=== PATIENT | male | born 1985 ===

== ENCOUNTER 2020-11-03 20:53 | Emergency (ER) | payer SELFPAY ==
--- NOTE | 2020-11-03 21:07 | XRR_ITS ---
PROCEDURE INFORMATION: Exam: XR Left Hand Exam date and time: 11/03/2020 9:07 PM Age: 34 years old Clinical indication: Injury or trauma; Other: Smashed in gate; Crushing; Left; Injury details: PT smashed his hand in a gate. Pain on the 5th metacarpal TECHNIQUE: Imaging protocol: XR Left hand. Views: 3 or more views. COMPARISON: No relevant prior studies available. FINDINGS: Bones/joints: Fifth metacarpal bone fracture. Distal neck fracture. Severe dorsal apex angulation deformity. Moderate displacement. Normal joint spaces. Soft tissues: Soft tissue swelling over the dorsum of the hand. XR/XR hand LT min 3V* [id number] IMPRESSION: Acute 5th metacarpal bone fracture.
[2020-11-03 21:16] VITALS: BP 150/89; PULSE 115; TEMP 36.8; O2SAT 97; BMI 30.7
[2020-11-03 21:20] VITALS: BP 154/88; PULSE 101; RESP 16; TEMP 36.8; O2SAT 97
[2020-11-03 21:25] VITALS: PULSE 101
--- NOTE | 2020-11-03 21:28 | ED_ITS ---
HPI - Extremity Problem General: Chief complaint: Extremity Injury, Upper Stated complaint: Injury Left Hand Time Seen by Provider: 11/03/20 21:27 History of Present Illness: HPI Narrative: Patient is a 34-year-old male comes to the ED with left hand injury. Patient says that injury occurred just prior to arrival. He was working out slight over his forearm and his left hand got smashed between some cattle and fence gate. Most of his pain is located towards the palm of his hand just below fourth and fifth digits. He rates his pain currently a 6 out of 10. Any movement with fourth and fifth digits causes pain. Associated symptoms: Deny chest pain, fever(s) or rash Review of Systems Const: Denies: fever(s), chills or fatigue Eyes: Denies: change in vision or eye discomfort ENMT: Denies: throat pain, odynophagia, nasal discharge or nasal congestion Card: Denies: chest pain, palpitations, edema, swelling of feet/ankles, dys pnea on exertion or orthopnea Resp: Denies: dyspnea, productive cough or non-productive cough GI: Denies: abdominal pain, nausea, vomiting, diarrhea, constipation or hematochezia : Denies: flank pain, difficulty urinating, dysuria or hematuria Musc: Reports: extremity pain (left hand pain); Denies: neck pain, back pain or extremity swelling Skin/Breast: Denies: rash or new lesions Neuro: Denies: headache(s), numbness in extremities or weakness in extremities PFS ED PFSH: Medical History Chronic groin pain History of kidney stones History of testicular cancer Hypogonadism Surgical History History of appendectomy History of bilateral orchiectomies Family History Other Adopted Social History Alcohol intake: current Alcohol intake frequency: other Marital status: Physical Exam Const: COMMON NORMALS: no acute distress, patient oriented x3, healthy appearing and alert GENERAL APPEARANCE: cooperative and comfortable HENMT: COMMON NORMALS: normocephalic HEAD & SCALP: normocephalic MOUTH: Normal oral and palatal mucosa present THROAT: posterior oropharynx normal and uvula midline Neck/C-Spine: COMMON NORMALS: supple GENERAL: Yes normal visual inspection Resp: COMMON NORMALS: normal respiratory effort, No retractions, No use of accessory muscles and clear to auscultation bilaterally AUSCULTATION: clear to auscultation bilaterally Cardio: COMMON NORMALS: regular rate, regular rhythm, S1 normal heart sound present, S2 normal heart sound present, No gallops present (Cardio), No clicks present (Cardio), No murmurs present (Cardio) and Peripheral pulses 2+ throughout RATE: regular rate RHYTHM: regular rhythm HEART SOUNDS: S1 normal heart sound present and S2 normal heart sound present PERIPHERAL PULSES: Peripheral pulses 2+ throughout GI: COMMON NORMALS: Normal to inspection, nondistended, normoactive bowel sounds present, Soft to palpation, non-tender and no masses PALPATION: Yes Soft to palpation : COMMON NORMALS: Yes no CVA tenderness BLADDER/KIDNEY EXAM: Yes no CVA tenderness Back/Pelvis: COMMON NORMALS: no CVA tenderness Extremity: GENERAL: Yes normal exam except as noted LEFT UPPER EXTREMITY: Yes hand & digits Left hand and digits: Yes inspection (No visible deformity or ecchymosis noted.), Yes palpation (Tenderness upon palpation of fourth and fifth metatarsal), Yes ROM (Limited flexion of fourth and fifth digit due to pain) and Yes neurovascular exam (Intact) Neuro: COMMON NORMALS: patient oriented x3 and moves all extremities SENSORIUM/ORIENTATION: Yes alert Skin: GENERAL SKIN EXAM: dry skin Course Vital Signs: Vital signs: Vital Signs Temperature 98.3 F 11/03/20 21:20 Pulse Rate 83 11/03/20 22:25 Respiratory Rate 14 11/03/20 22:25 Blood Pressure 126/83 11/03/20 22:25 Pulse Oximetry 98 11/03/20 22:25 MDM - Extremity (Nontraumatic) MDM Narrative: Medical decision making narrative: Patient is a 34-year-old male comes to the ED with hand injury and pain. No visible deformity seen. Neurovascular tact. X-ray of left hand shows 5th metacarpal distal head fracture. Patient was put in a ulnar gutter splint and discharged home with a prescription for hydrocodone for pain. I placed order with patient case manager for patient to be referred to orthopedic doctor. Return to ED precautions given. Patient was told patient case manager will contact him in the next several days set up an appoint with orthopedic doctor. Patient understood and agree with plan. Imaging Data^: Xray Ortho: Attestation: I personally reviewed and interpreted this imaging study as follows: My impression: Left hand x-ray-fifth metacarpal distal head fracture. Discharge Plan Discharge Patient Disposition: Home Clinical Impression: Fracture of fifth metacarpal bone Qualifiers: Encounter type: initial encounter Fracture type: closed Metacarpal location: base Fracture alignment: displaced Laterality: left Qualified Code(s): S62.317A - Displaced fracture of base of fifth metacarpal bone, left hand, initial encounter for closed fracture Condition: Stable Prescriptions: No Action tramadol 50 mg tablet 50 mg PO BID PRN (Reason: pain) Qty: 60 RF: 0 tramadol 50 mg tablet 50 mg PO BID PRN (Reason: Chronic pain) Qty: 60 RF: 0 testosterone cypionate 200 mg/mL oil 200 mg IM .weekly Qty: 10 RF: 5 Discharge Orders: Discharge ED (Routine); Ordered 11/03/20 Ordered By: Kunal Harris Discharge Diet: Regular Discharge Activity: Limit activity as instructed Patient Instructions: Hand Fracture (ED), Boxer Fracture (ED), Opioid Safety Activity Restrictions/Additional Instructions: Follow-up with medical provider as directed. Case management will be contacting you in the next several days to set up an appointment with orthopedic doctor. Keep splint on and dry and limit activity with left hand. Take medications as prescribed. Return to the ER or your medical provider if condition worsens. Please read and understand discharge instructions. Thank you for choosing [facility] for your healthcare needs today. Please realize this is an emergency room and that we are providing you with a medical screening exam and this may not be complete and all inclusive of all the testing and or work up that you may need to determine your ailment or severity of your illness. It is very important that you follow up as instructed or that you return to the Emergency Department should you have concerns or if your condition changes or worsens in any way. Coding Level of Care Code ED Senior Technical Business Analyst for Alek Orellana Exam Comprehensive
[2020-11-03] MEDS: HYDROcodone-acetaminophen 5-325 mg Tablet 1 TAB PO (21:33)
[2020-11-03 22:25] VITALS: BP 126/83; PULSE 83; RESP 14; O2SAT 98
--- NOTE | 2020-11-12 13:58 | DCPLANNER ---
manager credit risk had message to schedule a follow up appointment for patient with ortho. Referral was made to the ortho clinic, patient was seen on 11.09.20. Patient did attend appointment.
== END 2020-11-03 22:29 | disposition home or self-care (01) ==
PROVIDERS: Emergency Provider Physician Assistant
DX: S62.317A Displaced fracture of base of fifth metacarpal bone, left hand, initial encounter for closed fracture (principal); Z85.47 Personal history of malignant neoplasm of testis; W23.0XXA Caught, crushed, jammed, or pinched between moving objects, initial encounter
CPT/HCPCS: 29125; 73130; 99283

== ENCOUNTER → 2020-11-09 14:07 | Outpatient (BNVA) | payer SELFPAY | PROVIDERS: Referring Provider Physician Assistant; Visit Provider Orthopaedic Surgery | DX: S62.317A Displaced fracture of base of fifth metacarpal bone, left hand, initial encounter for closed fracture (principal); X58.XXXA Exposure to other specified factors, initial encounter | CPT/HCPCS: 73130 ==

== ENCOUNTER 2020-11-09 15:00 | Outpatient (CLI) | payer SELFPAY | END 2020-11-09 15:01 | disposition home or self-care (01) | LOC: SPT 15:00 | PROVIDERS: Visit Provider Orthopaedic Surgery | DX: Z46.89 Encounter for fitting and adjustment of other specified devices (principal); S62.317D Displaced fracture of base of fifth metacarpal bone, left hand, subsequent encounter for fracture with routine healing; X58.XXXD Exposure to other specified factors, subsequent encounter | CPT/HCPCS: 97760; L3984 ==

== ENCOUNTER 2023-01-31 01:10 | Emergency (ER) | payer SELFPAY ==
[2023-01-31 01:14] VITALS: BP 131/84; PULSE 121; RESP 18; TEMP 36.3; O2SAT 97; BMI 26.4
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
[2023-01-31 01:37] VITALS: PULSE 89; RESP 16; O2SAT 98
== END 2023-01-31 01:38 | disposition home or self-care (01) ==
PROVIDERS: Emergency Provider Emergency Medicine
DX: S01.81XA Laceration without foreign body of other part of head, initial encounter (principal); Z85.47 Personal history of malignant neoplasm of testis; Y04.2XXA Assault by strike against or bumped into by another person, initial encounter
CPT/HCPCS: 12013; 99282

== ENCOUNTER 2024-06-28 11:47 | Emergency (ER) | payer SELFPAY ==
[2024-06-28 11:54] VITALS: BP 128/80; PULSE 103; RESP 17; TEMP 36.9; O2SAT 91; BMI 27.1
[2024-06-28 12:31] LABS: Basophils # 0.1 10^3/uL (0.0-0.1); Basophils % 0.6 %; Eosinophils % 0.2 %; Hematocrit 45.4 % (37-53); Lymphocytes # 1.7 10^3/uL (0.8-4.8); Lymphocytes % 17.6 %; Mean Corpuscular HGB Conc 34.4 g/dL (30-55); Mean Corpuscular Hemoglobin 30.1 pg (27-33); Mean Corpuscular Volume 87.6 fl (82-101); Monocytes # 0.2 10^3/uL (0.2-0.9); Monocytes % 2.5 %; Neutrophils # 7.56 10^3/uL (1.8-7.7); Neutrophils % 78.8 %; Nucleated Red Blood Cells % 0 %; Platelet Count 273 10^3/cmm (157-399); Red Blood Count 5.18 10^6/uL (3.85-5.65); Red Cell Distribution Width 13.4 % (12.1-15.1)
[2024-06-28 12:48] LABS: Alanine Aminotransferase 73 U/L (0-41); Albumin Level 4.7 g/dL (3.5-5.2); Alkaline Phosphatase 59 U/L (40-130); Anion Gap 30.7 (5-19); Aspartate Amino Transferase 93 U/L (0-40); Blood Urea Nitrogen 21 mg/dL (6-20); Carbon Dioxide 18 mmol/L (22-29); Chloride 97 mmol/L (98-107); Creatinine Clr Calc Pharmacy 144.0577; Globulin 3.1 g/dL (1.3-4.6); Glomerular Filtration Rate 108.8 mL/min (90-130); Glucose 77 mg/dL (65-115); Lipase 29 U/L (13-60); Osmolality Calculated 296 mOsm/kg (285-295); Potassium 3.7 mmol/L (3.5-5.1); Sodium 142 mmol/L (136-145); Total Bilirubin 0.5 mg/dL (0.15-1.2); Total Protein 7.8 g/dL (6.6-8.7)
[2024-06-28 12:49] LABS: Ammonia 22 umol/L (16-60)
[2024-06-28 13:03] LABS: Alcohol Level 346 mg/dL (0-10)
--- NOTE | 2024-06-28 13:12 | W.ED.GENADLT ---
HPI - General Adult General: Chief complaint: General Medical Stated complaint: decreased level of consciousness Time Seen by Provider: 06/28/24 11:50 History of Present Illness: 38-year-old male presents to the emergency room with report of altered mental status. Patient is awake answers questions appears somewhat lethargic he states he has aches and pains everywhere. He relates he drinks regularly and thinks he is having withdrawal he states his last drink was about 12 to 15 hours ago. He denies any specific chest or abdominal pain he has had some vomiting denies any medic easier melena. Associated symptoms: Reports vomiting; Deny chest pain, dyspnea or rash Related Data Home Medications ?Medication ?Instructions ?Recorded ?Confirmed No Known Home Medications 06/28/24 06/28/24 Allergies Allergy/AdvReac Type Severity Reaction Status Date / Time meperidine (From Demerol) Allergy Unknown Unknown Verified 11/09/20 14:07 prochlorperazine (From Allergy Unknown Unknown Verified 11/09/20 14:07 Compazine) Review of Systems Const: Denies: fever(s) or chills Card: Denies: chest pain Resp: Denies: dyspnea GI: Reports: vomiting; Denies: abdominal pain : Denies: dysuria, urinary frequency or urinary urgency Musc: Denies: neck pain or back pain Skin/Breast: Denies: rash PFSH ED PFSH: Medical History History of kidney stones Hypogonadism Chronic groin pain History of testicular cancer Surgical History History of appendectomy History of bilateral orchiectomies Family History Other Adopted Social History Alcohol intake: current Alcohol intake frequency: other Marital status: Physical Exam Const: GENERAL APPEARANCE: cooperative HENMT: COMMON NORMALS: normocephalic, atraumatic and hearing grossly normal bilaterally HEAD & SCALP: normocephalic and atraumatic Resp: COMMON NORMALS: normal respiratory effort, No retractions, No use of accessory muscles and clear to auscultation bilaterally AUSCULTATION: clear to auscultation bilaterally Cardio: COMMON NORMALS: regular rate, regular rhythm and No murmurs present (Cardio) RATE: regular rate RHYTHM: regular rhythm GI: COMMON NORMALS: Soft to palpation and No hepatosplenomegaly present AUSCULTATION: Yes normoactive bowel sounds PALPATION: Yes Soft to palpation, No Tenderness to palpation present (GI), No Guarding due to palpation present (GI) and Yes No hepatosplenomegaly present Extremity: COMMON NORMALS: normal to inspection, capillary refill normal, no clubbing, cyanosis or edema, no calf tenderness and no pedal edema Skin: COMMON NORMALS: no rashes or lesions noted GENERAL SKIN EXAM: no rashes or lesions noted Course Vital Signs: Vital signs: Vital Signs Temperature 98.5 F 06/28/24 11:54 Pulse Rate 103 H 06/28/24 11:54 Respiratory Rate 17 06/28/24 11:54 Blood Pressure 128/80 06/28/24 11:54 Pulse Oximetry 91 06/28/24 11:54 [facility] - General Adult Medical Decision Making Blood alcohol markedly elevated. Has an anion gap to things also related to his drinking. He is up and ambulatory now. Liver functions are elevated discussed with him the findings related to drinking. Also discussed with him the importance of stopping drinking. I do not think he is in withdrawal at this point given his blood alcohol we will discharge patient home. He was up ambulatory his significant other was here in the emergency room with him as well. Lab Data 06/28/24 12:17 06/28/24 12:17 Laboratory Results WBC 9.60 10^3/uL (3.29-11.43) 06/28/24 12:17 RBC 5.18 10^6/uL (3.85-5.65) 06/28/24 12:17 Hgb 15.60 g/dL (11.27-16.99) 06/28/24 12:17 Hct 45.4 % (37-53) 06/28/24 12:17 MCV 87.6 fl (82-101) 06/28/24 12:17 MCH 30.1 pg (27-33) 06/28/24 12:17 MCHC 34.4 g/dL (30-55) 06/28/24 12:17 RDW 13.4 % (12.1-15.1) 06/28/24 12:17 Plt Count 273 10^3/cmm (157-399) 06/28/24 12:17 MPV 10.0 fL (7.4-10.4) 06/28/24 12:17 Neut % (Auto) 78.8 % 06/28/24 12:17 Lymph % (Auto) 17.6 % 06/28/24 12:17 [place] % (Auto) 2.5 % 06/28/24 12:17 Eos % (Auto) 0.2 % 06/28/24 12:17 Baso % (Auto) 0.6 % 06/28/24 12:17 Neut # (Auto) 7.56 10^3/uL (1.8-7.7) 06/28/24 12:17 Lymph # (Auto) 1.7 10^3/uL (0.8-4.8) 06/28/24 12:17 [place] # (Auto) 0.2 10^3/uL (0.2-0.9) 06/28/24 12:17 Eos # (Auto) 0.0 10^3/uL (0.0-0.8) 06/28/24 12:17 Baso # (Auto) 0.1 10^3/uL (0.0-0.1) 06/28/24 12:17 Nucleated RBC % (auto) 0 % 06/28/24 12:17 Nucleated RBCs # 0.0 /100WBC 06/28/24 12:17 Sodium 142 mmol/L (136-145) 06/28/24 12:17 Potassium 3.7 mmol/L (3.5-5.1) 06/28/24 12:17 Chloride 97 mmol/L (98-107) L 06/28/24 12:17 Carbon Dioxide 18 mmol/L (22-29) L 06/28/24 12:17 Anion Gap 30.7 (5-19) H 06/28/24 12:17 BUN 21 mg/dL (6-20) H 06/28/24 12:17 Creatinine 0.8 mg/dL (0.7-1.2) 06/28/24 12:17 GFR Calculation 108.8 mL/min (90-130) 06/28/24 12:17 Glucose 77 mg/dL (65-115) 06/28/24 12:17 Calculated Osmolality 296 mOsm/kg (285-295) H 06/28/24 12:17 Calcium 9.0 mg/dL (8.5-10.5) 06/28/24 12:17 Total Bilirubin 0.5 mg/dL (0.15-1.2) 06/28/24 12:17 AST 93 U/L (0-40) H 06/28/24 12:17 ALT 73 U/L (0-41) H 06/28/24 12:17 Alkaline Phosphatase 59 U/L (40-130) 06/28/24 12:17 Ammonia 22 umol/L (16-60) 06/28/24 12:17 Total Protein 7.8 g/dL (6.6-8.7) 06/28/24 12:17 Albumin 4.7 g/dL (3.5-5.2) 06/28/24 12:17 Globulin 3.1 g/dL (1.3-4.6) 06/28/24 12:17 Lipase 29 U/L (13-60) 06/28/24 12:17 Urine Color Yellow (Yellow) 06/28/24 13:44 Urine Appearance Clear (CLEAR) 06/28/24 13:44 Urine pH 5.0 (5-7) 06/28/24 13:44 Ur Specific [place] 1.016 (1.005-1.030) 06/28/24 13:44 Urine Protein 2+ (Negative) A 06/28/24 13:44 Urine Glucose (UA) Negative (Normal) 06/28/24 13:44 Urine Ketones 1+ (Negative) H 06/28/24 13:44 Urine Blood Negative (Negative) 06/28/24 13:44 Urine Nitrate Negative (Negative) 06/28/24 13:44 Urine Bilirubin Negative (Negative) 06/28/24 13:44 Urine Urobilinogen 0.2 mg/dL (Negative) 06/28/24 13:44 Ur Leukocyte Esterase Negative (Negative) 06/28/24 13:44 Urine RBC 0-2 /hpf (0-2) 06/28/24 13:44 Urine WBC 0-5 /hpf (0-5) 06/28/24 13:44 Ur Squamous Epith Cells 0-5 /hpf (0-5) 06/28/24 13:44 Amorphous Sediment Not Reportable 06/28/24 13:44 Urine Bacteria None seen /hpf (NONE) 06/28/24 13:44 Hyaline Casts 14.87 /lpf 06/28/24 13:44 Fine Granular Casts 0-4 /lpf H 06/28/24 13:44 Urine Opiates Screen Negative ng/mL (Negative) 06/28/24 13:44 Ur Barbiturates Screen Negative ng/mL (Negative) 06/28/24 13:44 Ur Phencyclidine Scrn Negative ng/mL (Negative) 06/28/24 13:44 Ur Amphetamines Screen Negative ng/mL (Negative) 06/28/24 13:44 U Benzodiazepines Scrn Positive ng/mL (Negative) H 06/28/24 13:44 Urine Cocaine Screen Negative ng/mL (Negative) 06/28/24 13:44 U Marijuana (THC) Screen Negative ng/mL (Negative) 06/28/24 13:44 Ethyl Alcohol 346 mg/dL (0-10) H* 06/28/24 12:17 No radiology studies performed this visit Discharge Plan Discharge Patient Disposition: Home Clinical Impression: Alcohol intoxication Condition: Stable Prescriptions: No Action No Known Home Medications Discharge Orders: Discharge ED (Routine); Ordered 06/28/24 Ordered By: Sd Garibya Discharge Diet: Usual diet Discharge Activity: Increase activity as tolerated Patient Instructions: Alcohol Intoxication (ED), Abuse of Alcohol (ED), Alcohol Dependence (ED), Opioid Safety, Pain Management Activity Restrictions/Additional Instructions: Thank you for choosing [facility] for your healthcare needs today. It is very important that you follow up as instructed or that you return to the Emergency Department should you have concerns or if your condition changes or worsens in any way. Abstain from alcohol Print Language: Singaporean Coding Level of Care Code ED Talent Development Consultant for Alek Orellana
[2024-06-28 14:03] LABS: Bilirubin Urine Negative (Negative); Blood Urine Negative (Negative); Glucose Urine UA Negative (Normal); Ketones Urine 1+ (Negative); Leukocyte Esterase Urine Negative (Negative); Nitrate Urine Negative (Negative); Protein Urine 2+ (Negative); Specific Gravity, Urine 1.016 (1.005-1.030); Urine Appearance Clear (CLEAR); Urine Color Yellow (Yellow); Urobilinogen Urine 0.2 mg/dL (Negative)
[2024-06-28 14:05] LABS: Add Urine Microscopic? YES; Bacteria Urine None Seen /hpf; Hyaline Casts Urine 14.87 /lpf; RBC Urine 0-2 /hpf (0-2); Squamous Epithelial Cell Urine 0-5 /hpf (0-5); WBC Urine 0-5 /hpf (0-5)
[2024-06-28 14:12] LABS: Amphetamines Screen Urine Negative (Negative); Barbiturates Screen Urine Negative (Negative); Benzodiazepines Screen Urine Positive (Negative); Cocaine Screen Urine Negative (Negative); Opiate Screen Urine Negative (Negative); PCP Screen Urine Negative (Negative); THC Screen Urine Negative (Negative)
[2024-06-28 14:24] LABS: Add Urine Culture? No; Fine Granular Casts Urine 0-4 /lpf; UA Slide Review UA Slide Review Perf
== END 2024-06-28 14:18 | disposition home or self-care (01) ==
PROVIDERS: Emergency Provider Family Medicine
DX: F10.129 Alcohol abuse with intoxication, unspecified (principal); Y90.8 Blood alcohol level of 240 mg/100 ml or more; Z85.47 Personal history of malignant neoplasm of testis
CPT/HCPCS: 36415; 80053; 80306; 80307; 81001; 82140; 83690; 85025; 99283